=== PATIENT | male | born 1950 | race Caucasian/White ===

== ENCOUNTER 2019-11-30 19:42 | Inpatient (IN) | payer MEDICARE, SELFPAY ==
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
[2019-11-30 20:10] VITALS: PULSE 103; RESP 18; O2SAT 92; BMI 28.0
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
[2019-11-30 21:39] VITALS: PULSE 98; RESP 16; O2SAT 95
[2019-11-30 22:33] VITALS: BP 135/55; PULSE 103; RESP 18; TEMP 36.7; O2SAT 92
[2019-12-01] VITALS (10 sets, daily range): BP systolic 109–117; BP diastolic 56–62; PULSE 91–100; RESP 16–24; TEMP 36.4–36.9; O2SAT 92–97
[2019-12-01] MEDS: IPRATROPIUM 0.5 MG/ALBUTEROL SULFATE 2.5 MG AMPUL.NEB 3 ML INHALATION ×4 (00:03→18:41)
[2019-12-01] MEDS: SPIRONOLACTONE 25 MG TABLET 50 MG PO (09:17)
[2019-12-01] MEDS: FUROSEMIDE 20 MG TABLET PO (09:18)
[2019-12-01] MEDS: ACETAMINOPHEN 500 MG TABLET 1000 MG PO ×4 (09:18→20:41)
[2019-12-01] MEDS: ENOXAPARIN 40 MG/0.4 ML SYRINGE SUB-Q (09:32)
[2019-12-01] MEDS: POLYETHYLENE GLYCOL 3350 17 GM POWD.PACK PO (09:32)
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
--- NOTE | 2019-12-01 18:00 | PC.NURSE ---
TRANSFERRED CARE OF PATIENT TO SOHAIL LOCKETT.
[2019-12-02] VITALS (10 sets, daily range): BP systolic 104–110; BP diastolic 61–68; PULSE 77–111; RESP 14–20; TEMP 36.7–37; O2SAT 90–95
[2019-12-02] MEDS: IPRATROPIUM 0.5 MG/ALBUTEROL SULFATE 2.5 MG AMPUL.NEB 3 ML INHALATION ×5 (00:01→23:33)
--- NOTE | 2019-12-02 02:51 | PC.NURSE ---
pt sleeping, respirations even and regular, no evidence of distress noted
--- NOTE | 2019-12-02 08:50 | PC.NURSE ---
Patient transported off of floor to therapy
--- NOTE | 2019-12-02 09:40 | PC.NURSE ---
Patient transported back to floor from therapy
[2019-12-02] MEDS: POLYETHYLENE GLYCOL 3350 17 GM POWD.PACK PO (09:41)
[2019-12-02] MEDS: ACETAMINOPHEN 500 MG TABLET 1000 MG PO ×4 (09:41→20:11)
[2019-12-02] MEDS: ENOXAPARIN 40 MG/0.4 ML SYRINGE SUB-Q (09:41)
[2019-12-02] MEDS: SPIRONOLACTONE 25 MG TABLET 50 MG PO (09:42)
[2019-12-02] MEDS: FUROSEMIDE 20 MG TABLET PO (09:42)
--- NOTE | 2019-12-02 12:52 | HOMEO2EVAL ---
Home Oxygen Evaluation RC: Home Oxygen (O2) Evaluation Start: 12/02/19 09:40 Freq: ONCE Status: Active Protocol: RPE Activity Type Activity Date Activity User E-Sign Co-Sign Detail Recorded Client Recorded Date Recorded By Document 12/02/19 12:37 SJB [id number] 12/02/19 12:52 SJB Document 12/02/19 12:38 SJB [id number] 12/02/19 12:52 SJB 12/02/19 12/02/19 12:37 12:38 Home O2 Evaluation Test Phase Resting Exercise Oxygen Delivery Room Air Room Air Pulse Oximetry (90-100 %) 93 90 Pulse Rate (60-100 beats/min) 109 H 111 H Activity Tolerance Good Rating of Perceived Dyspnea (PD) +2 Mild, Some Difficulty, Noticeable to the Observer Rate of Perceived Exertion (PE) 12 Ambulation Distance (feet) 250 Home Oxygen Evaluation Comments Pt walked on room air pushing wheelchair. [place] well. Spo2s remained between 93 to 90% and HR 93- 113 on room air . Walked approx 250 ft. PLB used throughout. Treatment Charges O2 Evaluation
--- NOTE | 2019-12-02 15:29 | PC.NURSE ---
Patient transported back to floor from therapy
[2019-12-03] VITALS (11 sets, daily range): BP systolic 111–120; BP diastolic 59–65; PULSE 89–107; RESP 14–93; TEMP 36.5–36.7; O2SAT 91–98
[2019-12-03] MEDS: IPRATROPIUM 0.5 MG/ALBUTEROL SULFATE 2.5 MG AMPUL.NEB 3 ML INHALATION ×3 (05:39→20:46)
--- NOTE | 2019-12-03 08:00 | PC.NURSE ---
Up and eating breakfast, denies needs, personal items in reach
[2019-12-03] MEDS: SPIRONOLACTONE 25 MG TABLET 50 MG PO (08:55)
[2019-12-03] MEDS: ACETAMINOPHEN 500 MG TABLET 1000 MG PO ×4 (08:56→20:46)
[2019-12-03] MEDS: ENOXAPARIN 40 MG/0.4 ML SYRINGE SUB-Q (08:56)
[2019-12-03] MEDS: FUROSEMIDE 20 MG TABLET PO (08:56)
[2019-12-03] MEDS: POLYETHYLENE GLYCOL 3350 17 GM POWD.PACK PO (08:57)
--- NOTE | 2019-12-03 09:42 | PC.NURSE ---
To therapy via wheel chair, is having a productive cough, yellow sputum, will obtain sample when available
[2019-12-03 09:43] LABS: Hematocrit 39.1 % (37.0-46.0); Hemoglobin 12.4 g/dL (12.4-15.3); Immature Platelet Fraction Pct 1.9 % (1.0-7.0); Mean Corpuscular HGB Conc 31.7 g/dL (32.0-36.0); Mean Corpuscular Hemoglobin 30.1 pg (27.0-31.0); Mean Corpuscular Volume 94.9 fL (78.0-102.0); Mean Platelet Volume 10.8 fl (8.7-11.0); Platelet Count Result 120 K/mm3 (150-420); Red Blood Count 4.12 M/mm3 (4.70-6.10); White Blood Count 6.5 K/mm3 (4.8-10.8)
[2019-12-03 10:02] LABS: Alanine Aminotransferase 27 U/L (16-63); Albumin Level 3.1 g/dL (3.4-5.0); Alkaline Phosphatase 151 U/L (46-116); Anion Gap 14.4 mmol/L (7-16); Aspartate Amino Transferase 30 U/L (15-37); Bilirubin,Total 0.7 mg/dL (0.00-1.00); Blood Urea Nitrogen 17 mg/dL (7-18); Calcium 9.9 mg/dL (8.5-10.1); Carbon Dioxide 25 mmol/L (21-32); Chloride 103 mmol/L (98-108); Estimated CRCL calculation 58 ml/min; Estimated Glomerular Filt Rate > 60; Glucose 162 mg/dL (70-99); Osmolality Calculated 291 mOsm/kg (285-295); Potassium 4.4 mmol/L (3.5-5.1); Sodium 138 mmol/L (136-145); Total Protein 8.2 g/dL (6.4-8.2)
[2019-12-03 10:12] LABS: Magnesium 1.9 mg/dL (1.8-2.4)
--- NOTE | 2019-12-03 10:44 | PC.NURSE ---
Returned to room via wheel chair, tolerated well, did have cxr done while out of department
--- NOTE | 2019-12-03 11:29 | PC.NURSE ---
sling in place, good cms, resting in bed, denies needs at this time
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
--- NOTE | 2019-12-03 13:56 | PC.NURSE ---
Resting in bed, denies needs, no distress noted
--- NOTE | 2019-12-03 14:22 | PC.NURSE ---
Resting quietly in bed, no distress, no needs, oxygen on at 1 L NC
--- NOTE | 2019-12-03 15:38 | PC.NURSE ---
pt appears to be asleep now, was on walk with JT from therapy, no s/sx of distress, breathing unlabored
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
[2019-12-04] VITALS (9 sets, daily range): BP systolic 112–124; BP diastolic 53–65; PULSE 89–104; RESP 16–18; TEMP 36.3–36.7; O2SAT 91–94
--- NOTE | 2019-12-04 01:02 | PC.NURSE ---
Pt on rm air 897&. O2 1L on @ tjhis time spow 93%.
--- NOTE | 2019-12-04 04:13 | PC.NURSE ---
Sleeping, resp even. No signs of discomfort noted.
[2019-12-04] MEDS: IPRATROPIUM 0.5 MG/ALBUTEROL SULFATE 2.5 MG AMPUL.NEB 3 ML INHALATION ×3 (05:31→20:55)
--- NOTE | 2019-12-04 08:03 | PC.NURSE ---
sitting up and eating breakfast
[2019-12-04] MEDS: ACETAMINOPHEN 500 MG TABLET 1000 MG PO ×4 (08:34→20:54)
[2019-12-04] MEDS: SPIRONOLACTONE 25 MG TABLET 50 MG PO (08:35)
[2019-12-04] MEDS: ENOXAPARIN 40 MG/0.4 ML SYRINGE SUB-Q (08:36)
[2019-12-04] MEDS: FUROSEMIDE 20 MG TABLET PO (08:36)
--- NOTE | 2019-12-04 11:00 | PC.NURSE ---
Resting in bed, denies needs
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
--- NOTE | 2019-12-04 18:29 | PC.NURSE ---
Denies needs, no pain worsening pain, scheduled tylenol given, sling in place to right arm, takes off and on as desired, oxygen off major part of the day today, denies sob, cough less
[2019-12-05] MEDS: IPRATROPIUM 0.5 MG/ALBUTEROL SULFATE 2.5 MG AMPUL.NEB 3 ML INHALATION ×3 (05:33→20:37)
[2019-12-05 05:34] VITALS: PULSE 101; RESP 16
[2019-12-05 05:42] VITALS: PULSE 98; RESP 16
[2019-12-05 07:33] VITALS: BP 117/74; PULSE 98; RESP 20; TEMP 36.6; O2SAT 93
[2019-12-05] MEDS: ACETAMINOPHEN 500 MG TABLET 1000 MG PO ×4 (08:51→20:37)
[2019-12-05] MEDS: SPIRONOLACTONE 25 MG TABLET 50 MG PO (08:51)
[2019-12-05] MEDS: ENOXAPARIN 40 MG/0.4 ML SYRINGE SUB-Q (08:51)
[2019-12-05] MEDS: FUROSEMIDE 20 MG TABLET PO (08:52)
--- NOTE | 2019-12-05 11:11 | PC.NURSE ---
Up in pineda with Physical therapy, gait steady
[2019-12-05 13:26] VITALS: PULSE 95; RESP 16
[2019-12-05 15:11] VITALS: BP 123/57; PULSE 98; RESP 20; TEMP 36.4; O2SAT 93
--- NOTE | 2019-12-05 18:18 | PC.NURSE ---
UP IN CHAIR WATCHING TV, DENIES NEEDS AT THIS TIME, NO INCREASE IN PAIN
[2019-12-05 20:46] VITALS: PULSE 95; RESP 18
[2019-12-06] VITALS: BP 127/56; PULSE 95; RESP 18; TEMP 36.7; O2SAT 92
[2019-12-06 05:32] LABS: Hematocrit 36.3 % (37.0-46.0); Hemoglobin 11.4 g/dL (12.4-15.3); Mean Corpuscular HGB Conc 31.4 g/dL (32.0-36.0); Mean Corpuscular Hemoglobin 30.1 pg (27.0-31.0); Mean Corpuscular Volume 95.8 fL (78.0-102.0); Mean Platelet Volume 11.2 fl (8.7-11.0); Platelet Count Result 139 K/mm3 (150-420); Red Blood Count 3.79 M/mm3 (4.70-6.10); Red Cell Distribution Width 16.1 % (11.6-14.4); White Blood Count 6.7 K/mm3 (4.8-10.8)
[2019-12-06] MEDS: IPRATROPIUM 0.5 MG/ALBUTEROL SULFATE 2.5 MG AMPUL.NEB 3 ML INHALATION (05:45)
[2019-12-06 05:47] VITALS: PULSE 92; RESP 16
[2019-12-06 05:58] VITALS: PULSE 97; RESP 16
[2019-12-06 06:15] LABS: Anion Gap 14.6 mmol/L (7-16); Blood Urea Nitrogen 23 mg/dL (7-18); Carbon Dioxide 23 mmol/L (21-32); Chloride 105 mmol/L (98-108); Estimated CRCL calculation 66 ml/min; Estimated Glomerular Filt Rate > 60; Glucose 99 mg/dL (70-99); Osmolality Calculated 289 mOsm/kg (285-295); Potassium 4.6 mmol/L (3.5-5.1); Sodium 138 mmol/L (136-145)
[2019-12-06 07:39] VITALS: BP 136/68; PULSE 100; RESP 18; TEMP 36.3; O2SAT 94
[2019-12-06] MEDS: ACETAMINOPHEN 500 MG TABLET 1000 MG PO (08:25)
[2019-12-06] MEDS: ENOXAPARIN 40 MG/0.4 ML SYRINGE SUB-Q (08:26)
[2019-12-06] MEDS: FUROSEMIDE 20 MG TABLET PO (08:26)
[2019-12-06] MEDS: SPIRONOLACTONE 25 MG TABLET 50 MG PO (08:26)
--- NOTE | 2019-12-06 09:38 | PC.NURSE ---
To therapy via and volunteer
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
--- NOTE | 2019-12-06 10:43 | PC.NURSE ---
returned from therapy, pain med given, sitting in chair, denies needs
--- NOTE | 2019-12-06 12:10 | PC.NURSE ---
discharge instructions reviewed with pateint, patient awaiting ride home, to call when they arrive, eating lunch at this time
--- NOTE | 2019-12-06 12:30 | PC.NURSE ---
Discharge instructions reviewed again with pateint and now with family, all questions answered, all personal items and medications returned to pateint
--- NOTE | 2019-12-06 13:59 | PCOTNOTE ---
Patient is discharged from skilled OT services as he has been discharged from this facility and returned home. Patient has met all OT goals at this time and demonstrates independence with self care and functional mobility. MS
--- NOTE | 2019-12-06 16:00 | PCPTNOTE ---
Pt. has been discharged from our care. He has met all goals established at the initial evaluation and goals have been labeled by Ambar Mario PTA. Refer to last daily noted for pt. dischare status.
== END 2019-12-06 12:30 | disposition home or self-care (01) | DRG 948 ==
PROVIDERS: Nurse Practitioner; Admitting Provider Family Medicine; Visit Provider Family Medicine
DX: R53.1 Weakness (principal); S42.012D Anterior displaced fracture of sternal end of left clavicle, subsequent encounter for fracture with routine healing; S22.32XD Fracture of one rib, left side, subsequent encounter for fracture with routine healing; S52.044D Nondisplaced fracture of coronoid process of right ulna, subsequent encounter for closed fracture with routine healing; S02.2XXD Fracture of nasal bones, subsequent encounter for fracture with routine healing; V89.2XXD Person injured in unspecified motor-vehicle accident, traffic, subsequent encounter; J43.9 Emphysema, unspecified; K80.20 Calculus of gallbladder without cholecystitis without obstruction; D69.6 Thrombocytopenia, unspecified; F17.200 Nicotine dependence, unspecified, uncomplicated; K70.31 Alcoholic cirrhosis of liver with ascites
CPT/HCPCS: 36415; 71046; 80048; 80053; 83735; 85027; 87070; 87077; 87205; 94618; 94640; 97110; 97161; 97165; 97530; 97535; A9270; J1650

== ENCOUNTER 2020-04-15 00:22 | Outpatient (CLI) | payer MEDICARE, SELFPAY ==
[2020-04-15 18:00] LABS: SARS-CoV-2 RNA PCR Negative
== END 2020-04-15 00:23 | disposition home or self-care (01) ==
LOC: ANHCOVIDDT 00:22
PROVIDERS: PCP Family Medicine; Visit Provider Internal Medicine Gastroenterology
DX: Z01.812 Encounter for preprocedural laboratory examination (principal); Z20.828 Contact with and (suspected) exposure to other viral communicable diseases
CPT/HCPCS: 87635; C9803; U0003

== ENCOUNTER 2020-04-18 00:40 | Day surgery (SDC) | payer MEDICARE, SELFPAY ==
[2020-04-11 10:10] VITALS: BMI 28.3
[2020-04-18 06:45] VITALS: BP 152/73; PULSE 96; RESP 20; TEMP 36.2; O2SAT 93
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
[2020-04-18] MEDS: LACTATED RINGERS 1,000 ML 150 ML IV CONT (07:13)
[2020-04-18 08:15] VITALS: BP 121/73; PULSE 88; RESP 26; O2SAT 92
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
[2020-04-18 08:25] VITALS: BP 125/78; PULSE 88; RESP 24; O2SAT 97
[2020-04-18 08:35] VITALS: BP 146/83; PULSE 88; RESP 24; O2SAT 98
== END 2020-04-18 08:46 | disposition home or self-care (01) ==
PROVIDERS: PCP Family Medicine; Visit Provider Internal Medicine Gastroenterology
PROC: 0DJ08ZZ Inspection of Upper Intestinal Tract, Via Natural or Artificial Opening Endoscopic (ICD-10-PCS; CPT 43235; principal; 2020-04-18 08:00)
DX: K74.60 Unspecified cirrhosis of liver (principal); I85.10 Secondary esophageal varices without bleeding; K29.70 Gastritis, unspecified, without bleeding; R18.8 Other ascites; D69.6 Thrombocytopenia, unspecified; J43.9 Emphysema, unspecified; Z87.891 Personal history of nicotine dependence
CPT/HCPCS: 43244; 87635; C9803; J2704; J7120; U0003

== ENCOUNTER 2020-05-27 01:52 | Outpatient (CLI) | payer MEDICARE, SELFPAY ==
[2020-05-27 18:09] LABS: SARS-CoV-2 RNA PCR Negative
== END 2020-05-27 01:53 | disposition home or self-care (01) ==
LOC: ANHCOVIDDT 01:52
PROVIDERS: PCP Family Medicine; Visit Provider Internal Medicine Gastroenterology
DX: Z01.812 Encounter for preprocedural laboratory examination (principal); Z11.59 Encounter for screening for other viral diseases
CPT/HCPCS: 87635; C9803; U0003

== ENCOUNTER 2020-05-30 02:27 | Day surgery (SDC) | payer MEDICARE, SELFPAY ==
[2020-05-24 12:59] VITALS: BMI 29.2
[2020-05-30 07:32] VITALS: BP 139/65; PULSE 103; RESP 20; TEMP 37.6; O2SAT 94; BMI 30.9
[2020-05-30] MEDS: LACTATED RINGERS 1,000 ML 150 ML IV CONT (07:45)
--- NOTE | 2020-05-30 08:40 | P.PNAN_ITS ---
Anes - Eval Final PreProcedure Day of Procedure 05/30/20 08:40 Patient weight: obese Heart: regular rate and rhythm Lungs: clear to auscultation Airway: Mallampati scale class II Neurological: alert and oriented Last oral intake: >/= 8 hours ASA classification: III Emergent: no Anesthetic plan: proceed Anesthesia type and monitoring: general GIVS and standard monitoring Informed Consent: The patient's anesthetic plan and its attendant risks and b enefits were discussed with the patient/family/POA. Questions were solicited and answers provided to the satisfaction of the patient/family/POA.
--- NOTE | 2020-05-30 09:09 | PM.HPGS ---
History of Present Illness History of Present Illness Consent: Risks, benefits, and alternatives have been discussed and questions answered. Patient agrees to proceed with procedure. Chief complaint: ongoing Variceal Eradication Narrative: Christian Hartmann III is a 69 year old male with cirrhosis and esophageal varices ligated few weeks ago- no GIB Review of Systems Constitutional: Constitutional: Denies headache(s) and Denies weakness Eyes: Eyes: Denies blurry vision ENT: Reports Normal hearing present, Denies headache(s) and Denies neck pain Cardiovascular: Cardiovascular: Denies chest pain and Denies dyspnea Respiratory: Respiratory: Denies dyspnea Gastrointestinal: Gastrointestinal: Reports no additional gastrointestinal complaints Genitourinary: Genitourinary: Denies dysuria Musculoskeletal: Musculoskeletal: Denies neck pain Integumentary/Breasts: Skin/Breast: Denies dry skin Neurologic: Reports Normal hearing present, Denies headache(s) and Denies weakness Psychiatric: Psychiatric: Denies anxiety Endocrine: Endocrine: Denies change in body appearance Hematologic/Lymphatic: Hematologic/Lymphatic: Denies easy bleeding Allergic/Immunologic: Allergic/Immunologic: Denies urticaria PMF Social History Social History Social History: The patient is and lives with his cousin. His 3 years ago of lung cancer. They worked doing odd jobs. He worked for [employer] for 33 years prior to retiring. He used to drink approximately a 6-12 beers a week. He has not drank in 10 years. He continues to smoke 3/4 of pack of cigarettes per day and has done so since he was a teenager. He denies any illicit substance use. He has 2 biologic children who are still living a son and a daughter. His other son of an overdose. He still has 1 stepchild living as well. Code status: DNR per patient request Smoking packs per day: 1 Smoking cigarettes per day: 20.0 Years smoked: 40 Smoking pack-years: 40.00 Smoking status: Former smoker Tobacco type: cigarettes Second hand tobacco smoke exposure: No Alcohol intake: never Substance use: never Substance use type: does not use Gender identity (if verbalized by the patient): Male Spiritual care concerns: No Agree to blood products: No Meds Home Medications and Allergies Home Medications Medication Instructions Recorded Confirmed Type tiotropium bromide 18 mcg capsule 1 cap INHALATION DAILY #90 01/17/20 05/24/20 Rx with inhalation device inhalation furosemide 20 mg tablet 20 mg PO DAILY #60 tablet 03/17/20 05/24/20 Rx spironolactone 50 mg tablet 50 mg PO QAM #90 tablet 04/25/20 05/24/20 Rx albuterol sulfate 05/30/20 History Allergies Allergy/AdvReac Type Severity Reaction Status Date / Time No Known Allergies Allergy Verified 05/30/20 07:26 Vital Signs Vital Signs - 24 hr 05/30/20 07:32 Temperature 99.7 F H Pulse Rate 103 H Respiratory Rate 20 Blood Pressure 139/65 Pulse Oximetry 94 Exam Const: General: comfortable and no acute distress HENMT: General nose exam: Normal nares present Eyes: General: appearance normal, both eyes and all related structures Neck: Neck: no JVD Resp: Auscultation: clear to auscultation bilaterally Cardio: Rate: regular rate Rhythm: regular rhythm GI: Inspection: non-distended GI Palp: Yes Soft to palpation Skin: General skin exam: normal color Neuro: General: gait normal Speech: normal speech Extrem: General: normal to inspection Psych: Mental Status: mental status grossly normal Assessment and Plan Assessment and plan (1) Esophageal varix: Code(s): I85.00 - Esophageal varices without bleeding Status: Acute Assessment and Plan: egd today to assess for EV eradication, denies any recent gib (2) Cirrhosis of liver with ascites: Qualifiers: He
[2020-05-30 09:29] VITALS: BP 97/54; PULSE 88; RESP 21; O2SAT 94
[2020-05-30 09:39] VITALS: BP 115/80; PULSE 88; RESP 21; O2SAT 94
[2020-05-30 09:50] VITALS: BP 110/68; PULSE 88; RESP 21; O2SAT 94
== END 2020-05-30 10:17 | disposition home or self-care (01) ==
PROVIDERS: PCP Family Medicine; Visit Provider Internal Medicine Gastroenterology
PROC: 0DJ08ZZ Inspection of Upper Intestinal Tract, Via Natural or Artificial Opening Endoscopic (ICD-10-PCS; CPT 43235; principal; 2020-05-30 08:45)
DX: I85.00 Esophageal varices without bleeding (principal); K29.70 Gastritis, unspecified, without bleeding; K74.60 Unspecified cirrhosis of liver; R18.8 Other ascites; D69.6 Thrombocytopenia, unspecified; J43.9 Emphysema, unspecified; E66.9 Obesity, unspecified; Z68.31 Body mass index [BMI] 31.0-31.9, adult; F17.210 Nicotine dependence, cigarettes, uncomplicated
CPT/HCPCS: 43235; 87635; C9803; J2704; J7120; U0003

== ENCOUNTER 2020-06-27 08:13 | Outpatient (CLI) | payer MEDICARE, SELFPAY ==
--- NOTE | ~2020-06-27 | US_ITS ---
EXAMINATION: US right upper quadrant DATE: 06/27/2020 08:43 INDICATION: Unspecified cirrhosis of the liver. TECHNIQUE: Multiple grayscale and Doppler ultrasound images of the abdomen were obtained. COMPARISON: CT abdomen and pelvis 11/02/2019 FINDINGS: The visualized portions of the head, body, and tail of the pancreas are normal. The liver d emonstrates heterogeneous echogenicity and surface nodularity, consistent with cirrhosis. There is no rmal flow in main portal vein. The gallbladder is normal in size and contains gallstones. No gallblad abby wall thickening or sonographic Snell sign. The common duct is normal and measures 4 mm. IMPRESSION: 1. Cirrhosis of the liver. 2. Cholelithiasis. Reviewed, dictated and finalized at location B.
== END 2020-06-27 08:14 | disposition home or self-care (01) ==
PROVIDERS: PCP Family Medicine; Visit Provider Internal Medicine Gastroenterology
DX: K74.60 Unspecified cirrhosis of liver (principal); K80.20 Calculus of gallbladder without cholecystitis without obstruction
CPT/HCPCS: 76705

== ENCOUNTER 2020-07-05 10:12 | Outpatient (CLI) | payer MEDICARE, SELFPAY ==
[2020-07-05 10:40] LABS: Hematocrit 45.6 % (42.0-52.0); Hemoglobin 15.2 g/dL (14.0-18.0); Immature Platelet Fraction Pct 2.5 % (0.9-11.2); Mean Corpuscular HGB Conc 33.3 g/dl (32-36); Mean Corpuscular Hemoglobin 31.6 pg (26-34); Mean Corpuscular Volume 94.8 fl (80-100); Mean Platelet Volume 10.6 fl (7.4-10.4); Platelet Count Result 92 k/mm3 (150-375); Red Blood Count 4.81 M/mm3 (4.6-6.20); Red Cell Distribution Width 14.7 % (11.5-14.5); White Blood Count 6.3 K/mm3 (4.5-10.0)
[2020-07-05 10:54] LABS: Alanine Aminotransferase 22 U/L (4-50); Albumin Level 4.1 g/dL (3.5-5.1); Alkaline Phosphatase 135 U/L (38-126); Anion Gap 10 mmol/L (8-16); Aspartate Amino Transferase 36 U/L (17-59); Bilirubin,Total 1.2 mg/dL (0.2-1.3); Blood Urea Nitrogen 14 mg/dL (9-20); Calcium 9.6 mg/dL (8.4-10.2); Carbon Dioxide 19 mmol/L (22-30); Chloride 107 mmol/L (98-107); Estimated Glomerular Filt Rate > 60; Glucose 128 mg/dL (75-110); Potassium 3.8 mmol/L (3.4-5.0); Sodium 136 mmol/L (137-145)
== END 2020-07-05 10:13 | disposition home or self-care (01) ==
LOC: ANHLAB 10:14
PROVIDERS: PCP Family Medicine; Visit Provider Family Medicine
DX: D64.9 Anemia, unspecified (principal); R53.83 Other fatigue
CPT/HCPCS: 36415; 80053; 85027; 85055

== ENCOUNTER 2020-10-06 00:22 | Outpatient (CLI) | payer MEDICARE, SELFPAY ==
[2020-10-06 19:24] LABS: SARS-CoV-2 RNA PCR Negative
== END 2020-10-06 00:23 | disposition home or self-care (01) ==
LOC: ANHCOVIDDT 00:22
PROVIDERS: PCP Family Medicine; Visit Provider Internal Medicine Gastroenterology
DX: Z01.812 Encounter for preprocedural laboratory examination (principal); Z20.828 Contact with and (suspected) exposure to other viral communicable diseases
CPT/HCPCS: 87635; C9803; U0003

== ENCOUNTER 2020-10-09 01:24 | Day surgery (SDC) | payer MEDICARE, SELFPAY ==
[2020-10-02 15:34] VITALS: BMI 30.9
[2020-10-09 09:03] VITALS: BP 141/64; PULSE 101; RESP 26; TEMP 37.2; O2SAT 92; BMI 30.5
[2020-10-09] MEDS: LACTATED RINGERS 1,000 ML 150 ML IV CONT (09:13)
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
[2020-10-09 10:35] VITALS: BP 120/71; PULSE 93; RESP 18; O2SAT 92
[2020-10-09 10:45] VITALS: BP 120/63; PULSE 95; RESP 20; O2SAT 94
[2020-10-09 10:55] VITALS: BP 122/81; PULSE 96; RESP 22; O2SAT 93
--- NOTE | 2020-10-09 11:02 | SUR.PHASEII ---
PT 94% ON ROOM AIR, DENIES SHORTNESS OF BREATH, STATES USES HOME 02 OCCASIONALLY, DENIES THE NEED FOR ANYTHING AT THIS TIME, UP AD MARIA ALEJANDRA, TALKING WITHOUT DIFFICULTY.
== END 2020-10-09 11:14 | disposition home or self-care (01) ==
PROVIDERS: PCP Family Medicine; Visit Provider Internal Medicine Gastroenterology
PROC: 0DJ08ZZ Inspection of Upper Intestinal Tract, Via Natural or Artificial Opening Endoscopic (ICD-10-PCS; CPT 43235; principal; 2020-10-09 10:15)
DX: Z12.11 Encounter for screening for malignant neoplasm of colon (principal); K63.5 Polyp of colon; K64.8 Other hemorrhoids; K74.60 Unspecified cirrhosis of liver; I85.10 Secondary esophageal varices without bleeding; K29.70 Gastritis, unspecified, without bleeding; J43.9 Emphysema, unspecified; F17.210 Nicotine dependence, cigarettes, uncomplicated
CPT/HCPCS: 45385; 43235; 88305; J2704; J7120

== ENCOUNTER 2021-01-31 10:02 | Outpatient (CLI) | payer MEDICARE, SELFPAY | END 2021-01-31 10:03 | disposition home or self-care (01) | LOC: ANHCOVIDVC 10:02 | PROVIDERS: PCP Family Medicine | DX: Z23 Encounter for immunization (principal) | CPT/HCPCS: 0001A; 91300 ==

== ENCOUNTER 2021-02-06 08:02 | Outpatient (CLI) | payer MEDICARE, SELFPAY ==
--- NOTE | ~2021-02-06 | US_ITS ---
US right upper quadrant INDICATION: Cirrhosis. PROCEDURE: Realtime right upper abdominal ultrasound. COMPARISON: No prior studies for comparison. FINDINGS: The pancreas is normal without focal mass or pancreatic ductal dilation. Liver echotexture is increased and heterogeneous with nodular surface, compatible with cirrhosis. There is normal dir ectional flow in the portal vein. The gallbladder is normal without stones, gallbladder wall thickening or pericholecystic fluid. Comm on bile duct measures 4 mm. No sonographic Snell's sign. IMPRESSION: 1: Cirrhosis of the liver. Reviewed, dictated and finalized at location A. IMPRESSION: 1: Cirrhosis of the liver.
== END 2021-02-06 08:03 | disposition home or self-care (01) ==
PROVIDERS: PCP Family Medicine; Visit Provider Internal Medicine Gastroenterology
DX: K74.60 Unspecified cirrhosis of liver (principal); R18.8 Other ascites
CPT/HCPCS: 76705

== ENCOUNTER 2021-02-21 09:59 | Outpatient (CLI) | payer MEDICARE, SELFPAY | END 2021-02-21 10:00 | disposition home or self-care (01) | LOC: ANHCOVIDVC 09:59 | PROVIDERS: PCP Family Medicine | DX: Z23 Encounter for immunization (principal) | CPT/HCPCS: 0002A; 91300 ==

== ENCOUNTER 2021-06-18 08:08 | Outpatient (CLI) | payer MEDICARE, SELFPAY ==
[2021-06-18 08:39] LABS: Basophils Absolute Auto 0.1 K/mm3 (0.0-0.1); Eosinophils Absolute Auto 0.2 K/mm3 (0-0.3); Eosinophils Percent Auto 2.9 % (0-4.4); Hemoglobin 15.4 g/dL (14.0-18.0); Immature Granulocyte Absolute 0.03 K/mm3 (0.00-0.031); Immature Granulocyte Percent A 0.5 % (0-0.5); Lymphocytes Absolute Auto 1.14 K/mm3 (0.9-3.2); Lymphocytes Percent Auto 18.6 % (18.3-44.2); Mean Corpuscular HGB Conc 32.8 g/dl (32-36); Mean Corpuscular Hemoglobin 33.8 pg (26-34); Mean Corpuscular Volume 103.3 fl (80-100); Mean Platelet Volume 10.4 fl (7.4-10.4); Monocytes Absolute Auto 0.7 K/mm3 (0.1-0.6); Monocytes Percent Auto 11.9 % (2.6-8.5); Neutrophils Percent Auto 65.1 % (45.5-73.1); Platelet Count Result 73 k/mm3 (150-375); Red Blood Count 4.55 M/mm3 (4.6-6.20); Red Cell Distribution Width 14.6 % (11.5-14.5); White Blood Count 6.1 K/mm3 (4.5-10.0)
[2021-06-18 08:46] LABS: INR 1.1; Prothrombin Time 14.3 Seconds (11.1-14.7)
[2021-06-18 08:50] LABS: Alanine Aminotransferase 23 U/L (4-50); Albumin Level 3.6 g/dL (3.5-5.1); Alkaline Phosphatase 168 U/L (38-126); Anion Gap 8 mmol/L (8-16); Aspartate Amino Transferase 42 U/L (17-59); Bilirubin,Total 1.7 mg/dL (0.2-1.3); Blood Urea Nitrogen 15 mg/dL (9-20); Calcium 9.6 mg/dL (8.4-10.2); Carbon Dioxide 19 mmol/L (22-30); Chloride 110 mmol/L (98-107); Cholesterol 134 mg/dL (0-200); Estimated Glomerular Filt Rate > 60; Glucose 106 mg/dL (65-110); HDL Direct 56 mg/dL; Potassium 4.6 mmol/L (3.4-5.0); Sodium 137 mmol/L (137-145); Triglycerides 57 mg/dL (<150)
[2021-06-18 08:50] LABS: Add Urine Microscopic? NO; Appearance Urine Clear (Clear); Bilirubin Urine Negative (Negative); Blood Urine Negative (Negative); Color Urine Yellow (Yellow); Glucose Urine UA Negative (Negative); Ketones Urine Negative (Negative); Leukocyte Esterase Ur Negative LEU/UL (NEGATIVE); Nitrate Urine Negative (Negative); Protein Urine Negative (Negative); Specific Grav Ur 1.012 (1.001-1.035); Urobilinogen Urine Negative mg/dL (<2.0)
[2021-06-18 09:01] LABS: LDL Cholesterol Direct 59 mg/dL
[2021-06-18 09:19] LABS: Thyroid Stimulating Hormone 0.597 uIU/mL (0.465-4.680)
[2021-06-22 16:27] LABS: Alpha Fetoprotein Tumor Marker 2.7 ng/mL (<6.1)
== END 2021-06-18 08:09 | disposition home or self-care (01) ==
PROVIDERS: PCP Family Medicine; Referring Provider Nurse Practitioner Family; Visit Provider Family Medicine
DX: D69.6 Thrombocytopenia, unspecified (principal); E78.5 Hyperlipidemia, unspecified; J43.9 Emphysema, unspecified; R03.0 Elevated blood-pressure reading, without diagnosis of hypertension
CPT/HCPCS: 36415; 80053; 80061; 81003; 82105; 84443; 85025; 85055; 85610

== ENCOUNTER 2021-08-18 00:23 | Emergency (ER) | payer MEDICARE, SELFPAY ==
[2021-08-18] VITALS (10 sets, daily range): BP systolic 136–154; BP diastolic 69–82; PULSE 109–126; RESP 20–40; TEMP 36.1–36.4; O2SAT 84–96
--- NOTE | ~2021-08-18 | CT_ITS ---
EXAMINATION: CTA chest PE protocol DATE: 08/18/2021 08:27 CDT INDICATION: Hypoxic respiratory failure. Tachycardia. TECHNIQUE: Computed tomographic angiography (CTA) of the chest was performed with 100 mL Omnipaque-35 0 intravenous contrast. The dose-length product was 322.77 mGy-cm. Maximum intensity projection 3D-re constructions of the aorta and other arteries were constructed by the technologist on a separate work station. Automated exposure control and iterative reconstruction technique were employed. COMPARISON: Chest dated 08/18/2021 FINDINGS: Study is nondiagnostic for pulmonary embolism due to suboptimal pulmonary arterial enhancem ent and respiratory motion. Cardiomegaly. 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 No significant pleura l or pericardial effusion. Severe emphysema. Extensive bilateral airspace disease, left greater than right. No pneumothorax. No endobronchial lesions. No thoracic lymphadenopathy. IMPRESSION: 1. Extensive bilateral airspace disease which may represent pneumonia or edema. 2: Nondiagnostic examination for evaluation of pulmonary embolism. 3: Cirrhosis with gynecomastia. Reviewed, dictated and finalized at location A.
--- NOTE | ~2021-08-18 | XR_ITS ---
XR chest 1V portable 08/18/2021 00:46 Indication: Dyspnea Procedure: AP portable chest Comparison: 12/03/2019 Findings: There is bilateral airspace disease, more extensive on the left. There is superimposed inte rstitial changes, likely chronic fibrosis. No significant effusion. No pneumothorax. Impression: 1: Asymmetric bilateral airspace disease which may represent pneumonia and/or edema. Reviewed, dictated and finalized at location A. Impression: 1: Asymmetric bilateral airspace disease which may represent pneumonia and/or e laurel.
--- NOTE | 2021-08-18 00:28 | ECG_ITS ---
Measurements Intervals [place] Rate: 126 P: WI: 0 QRS: -6 QRSD: 137 T: 45 QT: 352 QTc: 511 Interpretive Statements SINUS TACHYCARDIA ATRIAL PREMATURE COMPLEXES RIGHT BUNDLE BRANCH BLOCK BASELINE ARTIFACT- I, II, III, AVR, AVL, AVF, V1 ABNORMAL ECG Electronically Signed On 08-18-2021 8:49:06 CDT by James Massey D.O.
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
[2021-08-18] MEDS: dilTIAZem HCl INJ 25 MG/5 ML VIAL 10 MG IV PUSH (01:04)
[2021-08-18 01:23] LABS: Hematocrit 45.1 % (37.0-46.0); Hemoglobin 15.7 g/dL (12.4-15.3); Immature Platelet Fraction Pct 3.1 % (1.0-7.0); Mean Corpuscular HGB Conc 34.8 g/dL (32.0-36.0); Mean Corpuscular Hemoglobin 35.6 pg (27.0-31.0); Mean Corpuscular Volume 102.3 fL (78.0-102.0); Mean Platelet Volume 11.3 fl (8.7-11.0); Platelet Count Result 55 K/mm3 (150-420); Red Blood Count 4.41 M/mm3 (4.70-6.10); Red Cell Distribution Width 14.5 % (11.6-14.4); White Blood Count 3.8 K/mm3 (4.8-10.8)
[2021-08-18 01:26] LABS: Base Excess ABG -2.9 mmol/L (0-2); HCO3 ABG 18.5 mmol/L (23-29); Oxygen Content ABG 19.7 %vol (16.0-22.0); Oxygen Saturation ABG 92.9 % (95-97); Oxyhemoglobin 92.2 % (94-100); PO2 ABG 63.3 mmHg (75-85); Total Hemoglobin 15.2 g/dL (12.0-18.0); pH ABG 7.49 (7.35-7.45)
[2021-08-18 01:28] LABS: Device NON-REBREATHER MASK; Modified Allen's Test Pass; Site Drawn RIGHT RADIAL
[2021-08-18 01:39] LABS: Alanine Aminotransferase 36 U/L (16-63); Albumin Level 2.6 g/dL (3.4-5.0); Alkaline Phosphatase 196 U/L (46-116); Anion Gap 15 mmol/L (8-16); Aspartate Amino Transferase 78 U/L (15-37); Bilirubin,Total 1.2 mg/dL (0.00-1.00); Blood Urea Nitrogen 18 mg/dL (7-18); Calcium 8.3 mg/dL (8.5-10.1); Carbon Dioxide 19 mmol/L (21-32); Chloride 106 mmol/L (98-108); Estimated CRCL calculation 68 ml/min; Estimated Glomerular Filt Rate > 60; Glucose 115 mg/dL (70-99); NT Pro B Type Natriuretic Pept 347 pg/mL (0-125); Osmolality Calculated 292 mOsm/kg (285-295); Potassium 3.3 mmol/L (3.5-5.1); Sodium 140 mmol/L (136-145); Total Protein 7.1 g/dL (6.4-8.2); Troponin I 20.3 ng/L (0.00-60.4)
[2021-08-18 01:42] LABS: Ammonia 63 umol/L (11-32); CRP 6.8 mg/dL (0.0-0.9)
[2021-08-18 01:52] LABS: SARS-CoV-2 RNA PCR Positive (Negative)
[2021-08-18] MEDS: SODIUM CHLORIDE 0.9% IV 500 ML 999 ML IV CONT (02:03)
[2021-08-18 02:22] LABS: Influenza A QL RT-PCR Negative (Negative); Influenza B QL RT-PCR Negative (Negative)
[2021-08-18 02:30] LABS: Band Neutrophils Percent 0 % (0-6); Basophils Percent Manual 0 % (0-1); Eosinophils Percent Manual 0 % (1-6); Lymphocytes Absolute Manual 0.34 K/mm3 (1.1-4.5); Lymphocytes Percent Manual 9 % (18-44); Monocytes Absolute Manual 0.07 K/mm3 (0.1-0.90); Monocytes Percent Manual 2 % (3-9); Neutrophils Absolute Manual 3.38 K/mm3 (1.3-6.7); Neutrophils Percent Manual 89 % (46-73); Platelet Estimate Decreased (Adequate); Total Cells Counted 100
--- NOTE | 2021-08-18 02:34 | PC.NURSE ---
ERP spoke c pts family about test results and need for transfer. Call placed to [facility] for ICU bed for covid + and they denied due to no beds available. Pt and family then request [facility] or [facility], calls made and told no bed available. Call to [facility] and reports given, IMU beds may be available at [facility]. Will await call back from [facility] for Dr and acceptance.
[2021-08-18 02:35] LABS: Add Urine Microscopic? YES; Bilirubin Urine 1+ (Negative); Blood Urine 2+ (Negative); Color Urine Yellow (Yellow); Glucose Urine UA Negative (Negative); Ketones Urine Negative (Negative); Leukocyte Esterase Ur Negative LEU/UL (Negative); Nitrate Urine Negative (Negative); Protein Urine 3+ (Negative); Specific Grav Ur >= 1.030 (1.010-1.020)
[2021-08-18 02:47] LABS: Appearance Urine Sl Cloudy (Clear); Bacteria Urine 2+ /hpf; Mucus Urine Heavy /lpf; RBC Urine 21-50 /hpf (0-2); Squamous Epithelial Cell Urine None seen /hpf (Few); WBC Clumps Urine Present /hpf
[2021-08-18 03:05] LABS: Base Excess ABG -2.8 mmol/L (0-2); HCO3 ABG 19.3 mmol/L (23-29); Oxygen Content ABG 21.2 %vol (16.0-22.0); Oxygen Saturation ABG 96.2 % (95-97); Oxyhemoglobin 95.3 % (94-100); PCO2 ABG 27.6 mmHg (35-45); PO2 ABG 78.6 mmHg (75-85); Total Hemoglobin 15.8 g/dL (12.0-18.0); pH ABG 7.46 (7.35-7.45)
[2021-08-18 03:09] LABS: Device HIGH FLOW NASAL CANN; Fractional Inspired Oxygen 73 %; Modified Allen's Test Pass; Site Drawn RIGHT RADIAL
[2021-08-18] MEDS: ALBUTEROL SULFATE (*SP) INHALER 4 PUFF INHALATION (03:43)
[2021-08-18 04:05] LABS: Reflex Lactic Acid Yes or No Add Lactic
--- NOTE | 2021-08-18 05:00 | PC.NURSE ---
Call to [facility] in [facility], ANGEL spoke c Dr Mora and he accepts for transfer. Awaiting call back for bed placement and report.
[2021-08-18 05:24] LABS: Lactic Acid 3.3 mmol/L (0.4-2.0)
[2021-08-18 05:28] LABS: Troponin I 67.2 ng/L (0.00-60.4)
--- NOTE | 2021-08-18 05:49 | PC.NURSE ---
Pt resting c high flow O2 in place and tolerating fairly well. Call paged to [facility] for pt transfer.
[2021-08-18] MEDS: ACETAMINOPHEN 500 MG TABLET 1000 MG PO (06:00)
== END 2021-08-18 07:13 | disposition short-term general hospital (02) ==
PROVIDERS: Emergency Provider Emergency Medicine; PCP Family Medicine
DX: U07.1 COVID-19 (principal); J96.01 Acute respiratory failure with hypoxia; J12.82 Pneumonia due to coronavirus disease 2019; D69.6 Thrombocytopenia, unspecified; J84.10 Pulmonary fibrosis, unspecified; K74.60 Unspecified cirrhosis of liver; I85.10 Secondary esophageal varices without bleeding; K80.20 Calculus of gallbladder without cholecystitis without obstruction; Z86.010 Personal history of colon polyps; F17.210 Nicotine dependence, cigarettes, uncomplicated; R82.90 Unspecified abnormal findings in urine
CPT/HCPCS: 36415; 36600; 71045; 71275; 80053; 81001; 82140; 82805; 83605; 83880; 84484; 85025; 85055; 86140; 87040; 87086; 87502; 93005; 94640; 96361; 96365; 96367; 96375; 99285; A9270; C9803; J0456; J0696; J7040; Q9967; U0003; U0005